=== PATIENT | male | born 1925 | race Caucasian/White ===

== ENCOUNTER 2016-10-22 12:39 | Emergency (ER) | payer OTHER ==
[2016-10-22 12:46] VITALS: O2SAT 91
--- NOTE | 2016-10-22 12:50 | EDPHY ---
H & P Stated Complaint: L eye bleeding Time Seen by Provider: 10/22/16 12:50 HPI/ROS: CHIEF COMPLAINT: Bleeding in left eye HISTORY OF PRESENT ILLNESS: Patient presents to the ED after the patient's noticed bleeding in the conjunctiva of the patient's left eye. The patient is on a baby aspirin on a daily basis. He denies recent cough, straining or sneezing. The patient denies pain or acute vision loss. He denies additional complaints. REVIEW OF SYSTEMS: A comprehensive 10 point review of systems is otherwise negative aside from elements mentioned in the history of present illness. Source: Patient Exam Limitations: No limitations - Personal History Current Tetanus/Diphtheria Vaccine: Unsure Current Tetanus Diphtheria and Acellular Pertussis (TDAP): Unsure - Medical/Surgical History Hx Asthma: No Hx Chronic Respiratory Disease: No Hx Diabetes: No Hx Cardiac Disease: No Hx Renal Disease: No Hx Cirrhosis: No Hx Alcoholism: No Hx HIV/AIDS: No Hx Splenectomy or Spleen Trauma: No Other PMH: HTN, Dementia, Seizures - Social History Smoking Status: Former smoker - Physical Exam Exam: Visual Acuity: noted from Nurse's notes. Pupils: equal round and reactive to light EOMI Skin: no proptosis, no periorbital erythema or swelling, no vesicles Conjunctivae: Left subconjunctival hemorrhage Cornea: Normal appearing cornea Anterior chamber: normal, no hyphema or hypopyon Constitutional: Initial Vital Signs Temperature (C) 36.7 C 10/22/16 12:43 Heart Rate 67 10/22/16 12:43 Respiratory Rate 18 10/22/16 12:43 Blood Pressure 139/57 H 10/22/16 12:43 O2 Sat (%) 91 L 10/22/16 12:43 O2 Delivery Mode Room Air Allergies/Adverse Reactions: No Known Allergies Allergy (Unverified 10/22/16 12:45) Home Medications: Medication Instructions Recorded Aricept 10/22/16 Aspirin 81mg (*) 10/22/16 Keppra 10/22/16 Namenda 10 mg 10/22/16 Medical Decision Making ED Course/Re-evaluation: The patient presents to the ED with a left subconjunctival hemorrhage. The patient is well-appearing without evidence of additional ocular findings. The patient and his have been informed that this is a benign condition which should resolve spontaneously. They are discharged home with customary aftercare and return precautions. Departure - Departure Disposition: Home, Routine, Self-Care Clinical Impression: Subconjunctival hemorrhage of left eye Condition: Good Instructions: Subconjunctival Hemorrhage (ED) Additional Instructions: 1. Please return to the ED for any eye pain, decreased vision or other concerns. 2. You have a condition called a subconjunctival hemorrhage which should resolve spontaneously over the next several weeks. 3. Please follow up with your primary care provider as needed. Referrals: Kj Kennedy MD [Primary Care Provider] - As per Instructions
[2016-10-22 13:06] VITALS: BP 104/66; PULSE 69; RESP 14; TEMP 98.2
== END 2016-10-22 13:07 | disposition home or self-care (01) ==
DX: H11.32 Conjunctival hemorrhage, left eye (principal); I10 Essential (primary) hypertension; Z87.891 Personal history of nicotine dependence; Z79.82 Long term (current) use of aspirin

== ENCOUNTER → 2016-10-24 | Outpatient (CLI) | payer OTHER | LOC: FIMAGING 14:27 | PROVIDERS: ATTEND Psychiatry & Neurology Neurology | DX: R41.3 Other amnesia (principal); I67.2 Cerebral atherosclerosis; J32.9 Chronic sinusitis, unspecified ==